=== PATIENT | male | born 1930 | race Caucasian/White ===

== ENCOUNTER 2017-03-25 21:47 | Inpatient (IN) | payer OTHER ==
--- NOTE | 2017-03-25 22:46 | CPEKG ---
Heart Rate: 42 RR Interval: 1429 P-R Interval: 212 QRSD Interval: 96 QT Interval: 484 QTC Interval: 405 P [place]: -24 QRS [place]: 63 T Wave [place]: -42 EKG Severity - ABNORMAL ECG - EKG Impression: SINUS BRADYCARDIA EKG Impression: ABNORMAL T, CONSIDER ISCHEMIA, INFERIOR LEADS Electronically Signed By: Beba Don 25-Mar-2017 23:57:56
--- NOTE | 2017-03-25 23:02 | EDPHY ---
H & P Stated Complaint: sent by MD- abnormal blood work Time Seen by Provider: 03/25/17 22:25 HPI/ROS: HPI The patient presents with generalized weakness and not feeling well which has been present for the last several days. He says he is feeling more tired than usual and does not have his usual amount of energy. He also had some abdominal pains which have now resolved after taking Pepto-Bismol at home. He was sent in today by the community case manager Dr. Joseph because he had labs drawn today which revealed a potassium of 6.4 with the increased in his creatinine. He has congestive heart failure and has been treated as an outpatient for the last several months with diuretics, he was on torsemide 100 mg until 2 days ago, he was taken off because of increases in his creatinine. He also was on supplemental potassium ill 2 weeks ago. He has had impressive diuresis over the last several months losing 30-40 lb per his . REVIEW OF SYSTEMS Constitutional: No fever, no chills. Eyes: No discharge. ENT: No sore throat. Cardiovascular: No chest pain, no palpitations. Respiratory: No cough, no shortness of breath. Gastrointestinal: No abdominal pain, no vomiting. Genitourinary: No hematuria. Musculoskeletal: No back pain. Skin: No rashes. Neurological: No headache. PMHx: CHF, history of aortic valve repair Soc Hx: Lives at home with family PHYSICAL General Appearance: Alert, no distress Eyes: Pupils equal and round no pallor or injection ENT, Mouth: Mucous membranes moist Respiratory: There are no retractions, lungs are clear to auscultation Cardiovascular: Regular rate and rhythm Gastrointestinal: Abdomen is soft and non-tender, no masses, bowel sounds normal Neurological: A&O, moves all extremities Skin: Warm and dry, no rashes Musculoskeletal: Neck is supple non tender Extremities: symmetrical, full range of motion Psychiatric: Patient is oriented X 3, there is no agitation Source: Patient, Family Exam Limitations: No limitations - Medical/Surgical History Hx Asthma: No Hx Chronic Respiratory Disease: Yes Hx Diabetes: No Hx Cardiac Disease: Yes Hx Renal Disease: No Hx Cirrhosis: No Hx Alcoholism: No Hx HIV/AIDS: No Hx Splenectomy or Spleen Trauma: No - Social History Smoking Status: Never smoked Constitutional: Initial Vital Signs Temperature (C) 36.5 C 03/25/17 22:03 Heart Rate 48 L 03/25/17 22:03 Respiratory Rate 20 03/25/17 22:03 Blood Pressure 94/30 L 03/25/17 22:03 O2 Sat (%) 91 L 03/25/17 22:03 O2 Delivery Mode Nasal Cannula O2 (L/minute) 3 Allergies/Adverse Reactions: codeine Allergy (Verified 03/25/17 22:01) Medical Decision Making - Diagnostics EKG Interpretation: EKG: Complete interpretation has been separately recorded in the [id number] [facility] [employer] archive. Summary impression: Sinus bradycardia, no peaked T-waves Imaging Results: Imaging Impressions Chest X-Ray 03/25/17 22:25 Impression: 1. Postoperative change with cardiomegaly and peribronchial thickening. 2. Mild elevation of the left hemidiaphragm with an apparent hiatal hernia and peripheral lateral pleural thickening with some left basilar infiltrate versus ( compressive) subsegmental atelectasis. Correlation with previous studies would be helpful to assess for more specific interval change. Imaging: I viewed and interpreted images myself Differential Diagnosis: 86-year-old man, history of CHF on diuresis presents with weakness and fatigue over the last several days. Labs checked at community case manager's office today and potassium was 6.4 with creatinine of 3.5, BUN in the 90s. I suspect this is related to his diuretic, however other causes of renal failure will need to be evaluated. In the emergency department, patient had an EKG which revealed no peaked T- waves. He was bradycardic, however this is usual for him. He was given IV fluids and Kayexalate. Then he was given insulin and calcium. Labs were repeated and were similar from earlier. Will be admitted to the hospitalist service. I have discussed the case with Dr. Morales. - Data Points Laboratory Results: Laboratory Results 03/25/17 22:05 03/25/17 22:05 03/25/17 03/25/17 03/25/17 23:38 22:05 22:05 WBC 10.63 10^3/uL H 10^3/uL (3.80-9.50) RBC 3.82 10^6/uL L 10^6/uL (4.40-6.38) Hgb 12.1 g/dL L g/dL (13.7-17.5) Hct 35.6 % L % (40.0-51.0) MCV 93.2 fL fL (81.5-99.8) MCH 31.7 pg pg (27.9-34.1) MCHC 34.0 g/dL g/dL (32.4-36.7) RDW 16.5 % H % (11.5-15.2) Plt Count 182 10^3/uL 10^3/uL (150-400) MPV 10.8 fL fL (8.7-11.7) Neut % (Auto) 63.7 % % (39.3-74.2) Lymph % (Auto) 15.2 % % (15.0-45.0) [place] % (Auto) 12.9 % % (4.5-13.0) Eos % (Auto) 6.8 % % (0.6-7.6) Baso % (Auto) 0.8 % % (0.3-1.7) Nucleat RBC Rel Count 0.0 % % (0.0-0.2) Absolute Neuts (auto) 6.78 10^3/uL H 10^3/uL (1.70-6.50) Absolute Lymphs (auto) 1.62 10^3/uL 10^3/uL (1.00-3.00) Absolute Monos (auto) 1.37 10^3/uL H 10^3/uL (0.30-0.80) Absolute Eos (auto) 0.72 10^3/uL H 10^3/uL (0.03-0.40) Absolute Basos (auto) 0.08 10^3/uL 10^3/uL (0.02-0.10) Absolute Nucleated RBC 0.00 10^3/uL 10^3/uL (0-0.01) Immature Gran % 0.6 % % (0.0-1.1) Immature Gran # 0.06 10^3/uL 10^3/uL (0.00-0.10) Sodium 136 mEq/L mEq/L (135-145) Potassium 6.2 mEq/L H mEq/L (3.5-5.2) Chloride 101 mEq/L mEq/L (97-110) Carbon Dioxide 23 mEq/l mEq/l (22-31) Anion Gap 12 mEq/L mEq/L (8-16) BUN 89 mg/dL H mg/dL (7-23) Creatinine 3.4 mg/dL H mg/dL (0.7-1.3) Estimated GFR 17 Glucose 81 mg/dL mg/dL (70-100) Calcium 9.5 mg/dL mg/dL (8.5-10.4) Total Bilirubin 0.7 mg/dL mg/dL (0.1-1.4) AST 17 IU/L IU/L (17-59) ALT 28 IU/L IU/L (21-72) Alkaline Phosphatase 86 IU/L IU/L (38-126) NT-Pro-B Natriuret Pep 4780 pg/mL H pg/mL (0-450) Total Protein 6.6 g/dL g/dL (6.3-8.2) Albumin 3.5 g/dL g/dL (3.5-5.0) Urine Color YELLOW Urine Appearance CLEAR Urine pH 5.0 (5.0-7.5) Ur Specific [place] 1.012 (1.002-1.030) Urine Protein NEGATIVE (NEGATIVE) Urine Ketones NEGATIVE (NEGATIVE) Urine Blood NEGATIVE (NEGATIVE) Urine Nitrate NEGATIVE (NEGATIVE) Urine Bilirubin NEGATIVE (NEGATIVE) Urine Urobilinogen NEGATIVE EU EU (0.2-1.0) Ur Leukocyte Esterase NEGATIVE (NEGATIVE) Urine Glucose NEGATIVE (NEGATIVE) Medications Given: Discontinued Medications Calcium Gluconate (Calcium Gluconate) 1 gm IVP EDNOW ONE Stop: 03/25/17 23:55 Last Admin: 03/26/17 00:55 Dose: Not Given Dextrose (Dextrose 50% Syringe) 25 gm IVP EDNOW ONE Stop: 03/25/17 23:56 Last Admin: 03/26/17 00:44 Dose: 25 gm Sodium Chloride (Ns) 500 mls @ 1,000 mls/hr IV EDNOW ONE PRN Reason: Protocol Stop: 03/26/17 00:07 Last Admin: 03/25/17 23:50 Dose: 500 mls Calcium Gluconate (Calcium Gluconate 1 Gm (Premix)) 50 mls @ 100 mls/hr IV EDNOW ONE Stop: 03/26/17 00:39 Last Admin: 03/26/17 00:44 Dose: 50 mls Insulin Human Regular (Humulin R) 10 unit IVP EDNOW ONE Stop: 03/25/17 23:56 Last Admin: 03/26/17 00:43 Dose: 10 units Sodium Polystyrene Sulfonate (Kayexalate) 30 gm PO ONCE ONE Stop: 03/25/17 23:38 Last Admin: 03/25/17 23:50 Dose: 30 gm Departure - Departure Disposition: [facility] Inpatient Acute Clinical Impression: Hyperkalemia Acute renal failure Qualifiers: Acute renal failure type: unspecified Qualified Code(s): N17.9 - Acute kidney failure, unspecified Condition: Fair
[2017-03-25 23:15] LABS: PLATELET COUNT 182 10^3/uL (150-400)
[2017-03-25] MEDS ORDERED: SODIUM POLY SULF 15 GM/60 ML BOTTLE PO ONE (23:37)
[2017-03-25] MEDS ORDERED: NS 500 ML IV ONE (23:38)
[2017-03-25] MEDS ORDERED: CALCIUM GLUC 10% 1 GM/10 ML VIAL IVP ONE (23:54)
[2017-03-25] MEDS ORDERED: ONDANSETRON 4 MG/2 ML VIAL IVP PRN (23:55)
[2017-03-25] MEDS ORDERED: D50W 25 GM/50 ML SYR IVP ONE (23:55)
[2017-03-25] MEDS ORDERED: INSULIN REGULAR HUMAN 100 UNIT/ML UNIT IVP ONE (23:55)
[2017-03-25] MEDS ORDERED: ONDANSETRON DISINTEGRATING 4 MG TAB PO PRN (23:55)
[2017-03-25] MEDS ORDERED: ACETAMINOPHEN 325 MG TAB PO PRN (23:55)
[2017-03-26] MEDS ORDERED: CALCIUM GLUCONATE 50 ML IV ONE (00:10)
--- NOTE | 2017-03-26 01:24 | PDGENHP ---
History and Physical - Chief Complaint JARROD - History of Present Illness 86 yo M w/ hx of CAD s/p CABG, bioprosthetic AVR, diastolic CHF, and PIETRO was sent to ED by [facility] office 2/2 abnormal lab results. Patient himself feels some mild fatigue but otherwise is asymptomatic at this point. Work-up in the ED was notable for Cr of 3.4 and K of 6.2. Patient has diastolic CHF and has been undergoing aggressive diuresis over the past few months. Patient was started on Torsemide 100 mg qD in January by Dr. Jacobson. This dose was decreased to 50 mg qD sometime in March. Since late January laboratory work-up shows steady serum Cr rise from baseline of 1.0-1.3 to current value of 3.4. He is also on Aldactone 25 mg qD. All diuretics were stopped on 03/[address] Jacobson. Despite this his Cr continued to climb so he was advised to come to the ED. He has also been holding lisinopril since 03/23. Of note, since November his weight has decreased from 230 to about 205 lbs. History Information - Allergies/Home Medication List Allergies/Adverse Reactions: codeine Allergy (Verified 03/25/17 22:01) I have personally reviewed and updated: family history, medical history - Past Medical History coronary artery disease, CHF - Surgical History Reports: coronary bypass surgery Additional surgical history: Bioprosthetic AVR at time of CABG - Family History Positive for: CAD - Social History Smoking Status: Never smoked Review of Systems Review of Systems: ROS: 10pt was reviewed & negative except for what was stated in HPI & below Physical Exam Physical Exam: Temp Pulse Resp BP Pulse Ox 36.5 C 55 L 20 103/46 L 94 03/26/17 00:50 03/26/17 00:47 03/26/17 00:47 03/26/17 00:47 03/26/17 00:47 O2 (L/minute) 3 Constitutional: no apparent distress, not in pain Eyes: PERRL, EOMI Ears, Nose, Mouth, Throat: moist mucous membranes, no oral mucosal ulcers Cardiovascular: regular rate and rhythym, systolic murmur, edema (1+ b/l [place]) Respiratory: no respiratory distress, inspiratory crackles (LLL) Gastrointestinal: normoactive bowel sounds, soft, non-tender abdomen Skin: warm, normal color Musculoskeletal: full muscle strength, no muscle tenderness Neurologic: AAOx3, CN II-XII Intact Psychiatric: interacting appropriately, not anxious Lab Data & Imaging Review 03/25/17 22:05 03/25/17 22:05 WBC 10.63 10^3/uL (3.80-9.50) H 03/25/17 22:05 RBC 3.82 10^6/uL (4.40-6.38) L 03/25/17 22:05 Hgb 12.1 g/dL (13.7-17.5) L 03/25/17 22:05 Hct 35.6 % (40.0-51.0) L 03/25/17 22:05 MCV 93.2 fL (81.5-99.8) 03/25/17 22:05 MCH 31.7 pg (27.9-34.1) 03/25/17 22:05 MCHC 34.0 g/dL (32.4-36.7) 03/25/17 22:05 RDW 16.5 % (11.5-15.2) H 03/25/17 22:05 Plt Count 182 10^3/uL (150-400) 03/25/17 22:05 MPV 10.8 fL (8.7-11.7) 03/25/17 22:05 Neut % (Auto) 63.7 % (39.3-74.2) 03/25/17 22:05 Lymph % (Auto) 15.2 % (15.0-45.0) 03/25/17 22:05 [place] % (Auto) 12.9 % (4.5-13.0) 03/25/17 22:05 Eos % (Auto) 6.8 % (0.6-7.6) 03/25/17 22:05 Baso % (Auto) 0.8 % (0.3-1.7) 03/25/17 22:05 Nucleat RBC Rel Count 0.0 % (0.0-0.2) 03/25/17 22:05 Absolute Neuts (auto) 6.78 10^3/uL (1.70-6.50) H 03/25/17 22:05 Absolute Lymphs (auto) 1.62 10^3/uL (1.00-3.00) 03/25/17 22:05 Absolute Monos (auto) 1.37 10^3/uL (0.30-0.80) H 03/25/17 22:05 Absolute Eos (auto) 0.72 10^3/uL (0.03-0.40) H 03/25/17 22:05 Absolute Basos (auto) 0.08 10^3/uL (0.02-0.10) 03/25/17 22:05 Absolute Nucleated RBC 0.00 10^3/uL (0-0.01) 03/25/17 22:05 Immature Gran % 0.6 % (0.0-1.1) 03/25/17 22:05 Immature Gran # 0.06 10^3/uL (0.00-0.10) 03/25/17 22:05 Sodium 136 mEq/L (135-145) 03/25/17 22:05 Potassium 6.2 mEq/L (3.5-5.2) H 03/25/17 22:05 Chloride 101 mEq/L (97-110) 03/25/17 22:05 Carbon Dioxide 23 mEq/l (22-31) 03/25/17 22:05 Anion Gap 12 mEq/L (8-16) 03/25/17 22:05 BUN 89 mg/dL (7-23) H 03/25/17 22:05 Creatinine 3.4 mg/dL (0.7-1.3) H 03/25/17 22:05 Estimated GFR 17 03/25/17 22:05 Glucose 81 mg/dL (70-100) 03/25/17 22:05 Calcium 9.5 mg/dL (8.5-10.4) 03/25/17 22:05 Total Bilirubin 0.7 mg/dL (0.1-1.4) 03/25/17 22:05 AST 17 IU/L (17-59) 03/25/17 22:05 ALT 28 IU/L (21-72) 03/25/17 22:05 Alkaline Phosphatase 86 IU/L (38-126) 03/25/17 22:05 NT-Pro-B Natriuret Pep 4780 pg/mL (0-450) H 03/25/17 22:05 Total Protein 6.6 g/dL (6.3-8.2) 03/25/17 22:05 Albumin 3.5 g/dL (3.5-5.0) 03/25/17 22:05 Urine Color YELLOW 03/25/17 23:38 Urine Appearance CLEAR 03/25/17 23:38 Urine pH 5.0 (5.0-7.5) 03/25/17 23:38 Ur Specific [place] 1.012 (1.002-1.030) 03/25/17 23:38 Urine Protein NEGATIVE (NEGATIVE) 03/25/17 23:38 Urine Ketones NEGATIVE (NEGATIVE) 03/25/17 23:38 Urine Blood NEGATIVE (NEGATIVE) 03/25/17 23:38 Urine Nitrate NEGATIVE (NEGATIVE) 03/25/17 23:38 Urine Bilirubin NEGATIVE (NEGATIVE) 03/25/17 23:38 Urine Urobilinogen NEGATIVE EU (0.2-1.0) 03/25/17 23:38 Ur Leukocyte Esterase NEGATIVE (NEGATIVE) 03/25/17 23:38 Urine Glucose NEGATIVE (NEGATIVE) 03/25/17 23:38 Imaging Review: Imaging Impressions Chest X-Ray 03/25/17 22:25 Impression: 1. Postoperative change with cardiomegaly and peribronchial thickening. 2. Mild elevation of the left hemidiaphragm with an apparent hiatal hernia and peripheral lateral pleural thickening with some left basilar infiltrate versus ( compressive) subsegmental atelectasis. Correlation with previous studies would be helpful to assess for more specific interval change. Visualized and Interpreted EKG results: Yes EKG Interpretation: Positive for: other (Sinus iris, no peaked T waves, possible incomplete LBBB) Assessment & Plan Assessment: 86 yo M w/ hx of CAD s/p CABG, bioprosthetic AVR, diastolic CHF, and PIETRO presents with JARROD and hyperkalemia most likely due to overdiuresis. Plan: 1. JARROD - Serum Cr 3.4 on admission increased from baseline of 1.0-1.3 in December of 2016. Etiology most likely over-diuresis as patient had his diuretics increased in November of 2016. He lost ~25 lbs over this period. He has been off of diuretics and lisinopril since 03/23. UA unremarkable without evidence of active sediment. - S/p 1 L IVF in ED, continue to hold diuretics and BONITA - Avoid nephrotoxic agents - Will check FeNa, FeUrea - Renal ultrasound - Renal diet - Trend BMP 2. Chronic diastolic CHF - Diuretics stopped on 03/[address] Jacobson in setting of above. Last echo 01/16 showed LVEF 65% with moderate AI/MR/TR. Current weight ~205 lbs down from 230 several months ago. He still has mild crackles LLL and 1+ [place], but he states this is much improved from prior. - Holding diuretics as above 3. CAD - s/p CABG; last cardiolite stress test 06/15 showed LVEF 70% with no ischemia. He denies chest pain at this time. Takes atorvastatin only as outpatient. 4. HTN - Holding BONITA 2/2 JARROD. 5. Gout - Would hold home allopurinol in setting of decreased GFR; no evidence of acute flair. 6. Hypothyroid - On LTX 7. GERD - On PPI 8. BPH - On tamsulosin Diet - Renal Code - Full Ppx - SCDs Dispo - Admit to observation status
[2017-03-26 04:44] LABS: PLATELET COUNT 180 10^3/uL (150-400)
--- NOTE | 2017-03-26 10:24 | ASMTCASEMG ---
Living Arrangements What is your living Answers: With Spouse arrangement? Who do you live with? Type Of Residence What kind of residence do Answers: House you live in? Discharge Plan Comments Coordination Status Comments Notes: Pt is a 86 y/o man admittered for JARROD. Pt will most likely d/c independent when medically stable. No therapies have been ordered at this time. CM available for changes. Plan: Independent Date Signed: 03/26/2017 10:23 AM Electronically Signed By:RAJENDRA Robertson
--- NOTE | 2017-03-26 14:38 | HOSPPROG ---
Hospitalist Progress Note Assessment/Plan: Assessment: 86 yo M w/ hx of CAD s/p CABG, bioprosthetic AVR, diastolic CHF, and PIETRO presents with JARROD and hyperkalemia most likely due to overdiuresis. 1. JARROD (improving) likely over-diuresis as patient had his diuretics increased in November of 2016. He lost ~25 lbs over this period. He has been off of diuretics and lisinopril since 03/23. UA unremarkable without evidence of active sediment. - continue to hold home bonita and aldactone for now -cardiology consult pending 2. Chronic diastolic CHF - Diuretics stopped on 03/[address] Jacobson in setting of above. Last echo 01/16 showed LVEF 65% with moderate AI/MR/TR. Current weight ~205 lbs down from 230 several months ago. He still has mild crackles LLL and 1+ [place], but he states this is much improved from prior. - Holding diuretics as above 3. CAD - s/p CABG; last cardiolite stress test 06/15 showed LVEF 70% with no ischemia. He denies chest pain at this time. Takes atorvastatin only as outpatient. 4. HTN - Holding BONITA 2/2 JARROD. 5. Gout - Would hold home allopurinol in setting of decreased GFR; no evidence of acute flair. 6. Hypothyroid - On LTX 7. GERD - On PPI 8. BPH - On tamsulosin Diet - Renal Code - Full Ppx - SCDs Dispo - plan for dc 03/27 if renal function continues to improve Subjective: resolved abd pain. no chest pain or sob. nml appetite. Objective: Vital Signs Temp Pulse Resp BP Pulse Ox 36.6 C 65 16 126/66 H 100 03/26/17 10:55 03/26/17 10:55 03/26/17 10:55 03/26/17 10:55 03/26/17 10:55 Laboratory Results 03/26/17 04:25 03/26/17 04:25 abd us neg for hydronephrosis - Physical Exam Constitutional: no apparent distress, appears nourished, not in pain Cardiovascular: regular rate and rhythym, no murmur, rub, or gallop, No edema Respiratory: no respiratory distress, no rales or rhonchi, clear to auscultation Neurologic: AAOx3, sensation intact bilaterally ICD10 Worksheet Patient Problems: Problems Problem Status Onset Acute renal failure Acute Hyperkalemia Acute
--- NOTE | 2017-03-26 15:35 | PDMN ---
Medical Necessity Medical necessity: improving JARROD and hyperkalemia with further monitoring and tx needed > 2 midnights in pt with hx diastolic CHF, hx CAD S/P CABG,PIETRO, hyperkalemia
[2017-03-26] MEDS ORDERED: POLYETHYLENE GLYCOL 3350 17 GM PKT PO PRN (18:14)
--- NOTE | 2017-03-26 20:51 | GCON ---
[f rep st] CONSULTATION DATE OF CONSULTATION: 03/26/2017 CONSULTATION REQUESTED BY: Hospitalist. REASON FOR CONSULT: Admission due to electrolyte abnormalities. FINDING: Acute kidney insufficiency. HISTORY OF PRESENT ILLNESS: The patient is an 86-year-old male with a history of coronary artery disease, status post CABG, bioprosthetic aortic valve replacement, diastolic CHF, and obstructive sleep apnea. He had lab drawn, ordered by Dr. Jacobson, finding his creatinine level elevated at 3.4 and potassium level elevated at 6.2. The on-call physician notified the patient that he needed to go to the hospital for treatment. He states that he has felt fatigued but otherwise he had no other complaints. He is being followed closely by Dr. Jacobson. He was being aggressively diuresed over the past few months and recently had been taken off all his diuretics due to his electrolyte imbalance. His creatinine level and potassium level had continued to elevate despite holding diuretics, in addition to lisinopril and Aldactone. Today, at time of visit, he is feeling well, resting in bed. Has no complaints of shortness of breath. He does use supplemental oxygen at 2 L. He generally is feeling well. PAST MEDICAL HISTORY: Coronary artery disease, congestive heart failure, and obstructive sleep apnea. SURGICAL HISTORY: Coronary artery bypass surgery 15 years ago, along with bioprosthetic aortic valve replacement. REVIEW OF SYSTEMS: All systems are negative except those stated in the HPI. PHYSICAL EXAMINATION: CONSTITUTIONAL: He is in no distress. EARS, NOSE, THROAT , AND MOUTH: Mucous membranes are moist. No mouth ulcers or sores. EYES: He has no visual impairment. CARDIOVASCULAR: Heart rate is regular, with mild systolic murmur. Edema 1+, lower extremities, with discoloration. RESPIRATORY: He has no crackles or rhonchi. Lung sounds are diminished bilateral. GASTROINTESTINAL: Bowel sounds are normoactive. Abdomen is soft and nontender. SKIN: Warm and dry. Lower extremity discoloration. MUSCULOSKELETAL: Full muscle strength, with no tenderness. NEUROLOGICAL: He is alert and oriented x3. PSYCHIATRIC: He has no anxiety. He interacts appropriately. INVESTIGATIONS: Significant lab on day of admission: White blood count 10.63; today, 03/26, white count 9.45. On admission, sodium 136, potassium 6.2. BUN 89 , creatinine 3.4. GFR 17. Today, 03/26, sodium 140, potassium 5.1. BUN 84, creatinine 3.1. GFR 19. Magnesium 2.3. NT-proBNP 4780. Chest x-ray on admission, 03/25/2017, showed: 1. Postoperative change and cardiomegaly and peribronchial thickening. 2. Mild elevation of the left hemidiaphragm and apparent hiatal hernia and peripheral lateral pleural thickening with some left basilar infiltrate versus compressive subsegmental atelectasis. 03/26/17, ultrasound of the abdomen, retroperitoneal area, renal sonography findings: 1. Kidneys are normal in size, shape and position, with no focal renal mass or hydronephrosis. There is some mild renal cortical thinning, right kidney greater than the left. 2. Small urinary bladder volume. EKG on admission: Heart rate 42, sinus bradycardia, abnormal T-wave, consider ischemia inferolateral leads. PLAN AND IMPRESSION: Due to his aggressive diuresis, he became over-diuresed, causing his elevation in creatinine level and elevation of potassium level. At this time, would recommend that he continue holding his diuretics. We will get labs in the morning to ensure they are coming down as needed. We will get an EKG in the morning to reevaluate his cardiac status. He had a recent Echocardiogram at the Clinic that will be placed on chart. Consideration for low-dose Demadex on discharge with followup at [facility] with Dr. Jacobson within 1 week after discharge, with lab prior to that visit. At this time, he currently is stable. We will continue to watch his labs closely. /[id number]/MODL MTDD
[2017-03-26] MEDS ORDERED: LATANOPROST 0.005% 2.5 ML OPHT DROPS EACHEYE SCH (21:00)
[2017-03-26] MEDS: BRIMONIDINE/TIMOLOL 5 ML OPHT.BTL EACHEYE SCH (22:03)
[2017-03-27] MEDS ORDERED: LEVOTHYROXINE 112 MCG TAB PO SCH (06:00)
--- NOTE | 2017-03-27 08:57 | CPEKG ---
Heart Rate: 58 RR Interval: 1034 P-R Interval: 204 QRSD Interval: 86 QT Interval: 416 QTC Interval: 409 P [place]: -3 QRS [place]: 54 T Wave [place]: -54 EKG Severity - ABNORMAL ECG - EKG Impression: SINUS RHYTHM EKG Impression: NONSPECIFIC IVCD EKG Impression: ABNORMAL T, CONSIDER ISCHEMIA, INFERIOR LEADS EKG Impression: COMPARED WITH 03/25/2017, HEART RATE SLIGHTLY FASTER Electronically Signed By: Amarilys Fry 27-Mar-2017 18:10:12
[2017-03-27] MEDS ORDERED: Herbals/Supplements -Info Only PO SCH (09:00)
[2017-03-27] MEDS ORDERED: ASPIRIN 325 MG TAB PO SCH (09:00)
[2017-03-27] MEDS ORDERED: ALLOPURINOL 300 MG TAB PO SCH (09:00)
[2017-03-27] MEDS ORDERED: FOLIC ACID 1 MG TAB PO SCH (09:00)
[2017-03-27] MEDS ORDERED: CHOLECALCIFEROL VIT D3 1,000 UNITS TAB PO SCH (09:00)
[2017-03-27] MEDS: BRIMONIDINE/TIMOLOL 5 ML OPHT.BTL EACHEYE SCH (09:39)
[2017-03-27 11:54] VITALS: BP 105/44; PULSE 50; RESP 16; TEMP 97.6; O2SAT 99
--- NOTE | 2017-03-27 12:40 | PDCARPN ---
Cardiology Progress Note Chief Complaint: hyperkalemia/ARF Assessment/Plan: Assessment: 86-y/o F with PMH CAD/CABG, previous bioAVR, PIETRO, chronic dastolic CHF, admitted after K+ and Cr were noted to be considerably elevated. #. ARF: improved with holding diuretic will resume Torsemide at 20 mg daily (previous dose 100 mg daily) #. hyperkalemia: improved avoid Spironolactone and Lisinopril is on hold #. CAD/CABG: no symptoms suggestive of angina #. chronic hypoxic respiratory failure: O2 needs are at baseline Plan: OK to d/c from cardiology perspective with clinical follow up for next week 03/27/17 12:37 Subjective: Denies any fatigue, dyspnea, pain. Reviewed/Discussed With: hospitalist (Dr. Stahl) Objective: Vital Signs (8 Hrs) Temp Pulse Resp BP Pulse Ox 03/27/17 11:53 97.6 F 50 L 16 105/44 L 99 03/27/17 08:28 98.3 F 61 15 101/55 L 98 Intake/Output (24 Hrs) 03/26/17 03/27/17 03/28/17 05:59 05:59 05:59 Intake Total 420 Balance 420 Intake: Oral (ml) 420 Other: Number of Voids Toilet 2 Result Diagrams: 03/26/17 04:25 03/27/17 03:48 Telemetry: SR - Physical Exam Constitutional: no apparent distress Cardiovascular: regular rate and rhythm, no murmurs Gastrointestinal: normoactive bowel sounds Genitourinary: no suprapubic tenderness Psychiatric: cooperative, interactive ICD10 Worksheet Patient Problems: Problems Problem Status Onset Acute renal failure Acute Diastolic CHF, chronic Acute Hyperkalemia Acute
--- NOTE | 2017-03-27 18:27 | GDS ---
[f rep st] DISCHARGE SUMMARY DISCHARGE DIAGNOSES: 1. Acute kidney injury, likely hemodynamically mediated. 2. Mild hyperkalemia. 3. Chronic diastolic congestive heart failure. 4. History of coronary artery disease. 5. Hypertension. 6. History of gout. 7. Hypothyroidism. 8. Gastroesophageal reflux disease. 9. Benign prostatic hypertrophy. HOSPITAL COURSE: 1. Acute kidney injury: The patient was admitted to the hospital from the cardiology office after h e was noted to have elevated creatinine at 3.4 and a potassium of 6.2. His Aldactone and BONITA inhibit or were held. He was treated with IV fluids. He was given a dose of Kayexalate. On hospital day #1 , his potassium decreased to 5.1 with a creatinine of 3.1. He was seen by Cardiology who recommended that he stay for 1 more day. On the day of discharge, his creatinine is back down to 2 with a potas sium of 5.5. Prior to discharge, I discussed the case with Radha Chamorro from Cardiology, who though t it was reasonable for him to go home on a low dose of Demadex 20 mg daily. The patient agrees to b e seen in the clinic early next week. PHYSICAL EXAM: VITAL SIGNS: On day of discharge, blood pressure 105/44, pulse 50, respiratory rate 16, O2 saturation 99% on 2 L. GENERAL: No acute distress. LUNGS: Clear. ABDOMEN: Soft. EXTREMI TIES: Trace edema. LABORATORY DATA: Pertinent lab and studies done on this hospital stay: Renal ultrasound done 2017. Refer to report. DISCHARGE MEDICATIONS: Please see discharge medication reconciliation in [facility] for details. Chaparrita castellano is a preliminary list. Home medications put on hold: BONITA inhibitor and Aldactone. New medication on hospital discharge: Demadex was changed to 20 mg p.o. daily. All other home medications were continued at the usual home dosages. DISCHARGE INSTRUCTIONS: The patient will be discharged from the hospital, where he plans to follow u p with Dr. Jacobson early next week to further titrate his medications. He should have a metabolic pane l done next week as well prior to his visit. /[id number]/MODL
--- NOTE | 2017-03-28 15:19 | ASDISCHSUM ---
Discharge Information Plan Status: Medically Cleared to Leave: Discharge Date:03/27/2017 03:28 PM CM D/C Disposition: ADT D/C Disposition:[id number] Projected Discharge Date:03/27/2017 03:28 PM Transportation at D/C: Discharge Delay Reason: Follow-Up Date:03/27/2017 03:28 PM Discharge Slot: Final Diagnosis: Placement Information Patient Contact Information Contact Name:ANDREAS Relationship: Address:[address] Work Phone: City:[place] [facility] Phone: State/Zip Code:[place] [address] Email: Financial Information Financial Class:Medicare Advantage Plans Primary Plan Desc:[employer] Primary Plan Number:[id number] Secondary Plan Desc: Secondary Plan Number: Assessment Information [facility] Initial CM Assessment Living Arrangements What is your living Answers: With Spouse arrangement? Who do you live with? Type Of Residence What kind of residence do Answers: House you live in? Discharge Plan Comments Coordination Status Comments Notes: Pt is a 86 y/o man admittered for [facility]. Pt will most likely d/c independent when medically stable. No therapies have been ordered at this time. CM available for changes. Plan: Independent Date Signed: 03/26/2017 10:23 AM Electronically Signed By:RAJENDRA Robertson Intervention Information Intervention Type:*IM-Signed Date of Service:03/27/2017 12:59 PM Patient Type:Inpatient Staff Member:Sandra Pierre Hours: Discipline: Severity: Comment:
== END 2017-03-27 15:28 | disposition home health service (06) | DRG 683 ==
LOC: F2W 03-26 01:08 → OBSVTOIN 03-26 15:00
PROVIDERS: ADMIT Student in an Organized Health Care Education/Training Program; ATTEND Family Medicine
DX: N17.9 Acute kidney failure, unspecified (principal); E87.5 Hyperkalemia; I50.32 Chronic diastolic (congestive) heart failure; I25.10 Atherosclerotic heart disease of native coronary artery without angina pectoris; I11.0 Hypertensive heart disease with heart failure; E03.9 Hypothyroidism, unspecified; K21.9 Gastro-esophageal reflux disease without esophagitis; N40.0 Benign prostatic hyperplasia without lower urinary tract symptoms; G47.33 Obstructive sleep apnea (adult) (pediatric); M10.9 Gout, unspecified; Z95.1 Presence of aortocoronary bypass graft; Z95.3 Presence of xenogenic heart valve
CPT/HCPCS: 97161-GP; G8978-GP-CI; G8979-GP-CI; G8980-GP-CI; J0610; J1815